=== PATIENT | male | born 1950 | race Caucasian/White ===

== ENCOUNTER 2017-01-30 14:15 | Emergency (ER) | payer BC, OTHER ==
[2017-01-30 14:20] VITALS: BMI 33.0
--- NOTE | 2017-01-30 14:43 | PDOC ---
History of Present Illness - General Chief Complaint: Revisit, Lab Variance Stated Complaint: PCP SENT Time Seen by Provider: 01/30/17 14:43 - History of Present Illness Initial Comments: 66 year old male with PMH of HTN, CHF (S/P CABG x3 20 years ago and defib placement 10 years ago), afib (on Coumadin), HDL, and BPH presenting for an INR recheck after a supra-therapeutic (8) level was measured yesterday with his primary care Dr. Greene. His doctor instructed him to come into the ED to get a quicker check because the lab in his office had a three day turn around. He does not have any GI, oropharyngeal, or urinary bleeding and has not had any new episodes of fatigue. He does however have a bruise on his forearm that is new. He has been on coumadin for years and has not had supratherapatic reading sin the past. His diet has not changed much but of note he has has started Fenofibrate recently. Denies any other symptoms. 01/30/17 15:05 01/30/17 15:32 Past History - Past Medical History Allergies/Adverse Reactions: Allergies Allergy/AdvReac Type Severity Reaction Status Date / Time No Known Allergies Allergy Verified 01/30/17 14:20 Home Medications: Ambulatory Orders Amiodarone HCl 200 mg PO DAILY 01/30/17 Amlodipine Besylate 5 mg PO DAILY 01/30/17 Aspirin [ASA -] 325 mg PO DAILY 01/30/17 Clonidine HCl 0.2 mg PO DAILY 01/30/17 Fenofibrate Nanocrystallized [Fenofibrate] 48 mg PO DAILY 01/30/17 Furosemide [Lasix] 40 mg PO DAILY 01/30/17 Metoprolol Tartrate 50 mg PO DAILY 01/30/17 Rosuvastatin Calcium 10 mg PO DAILY 01/30/17 Tamsulosin HCl 0.4 mg PO DAILY 01/30/17 Warfarin Na [Coumadin] 2.5 mg PO DAILY 01/30/17 Cardiac Disorders: Yes (A FIB) - Surgical History Appendectomy: Yes Cardiac Surgery: Yes (DEFIBRILLATOR , BYPASS, STENTS) - Psycho/Social/Smoking Cessation Hx Anxiety: No Suicidal Ideation: No Smoking History: Former smoker Have you smoked in the past 12 months: No If you are a former smoker, when did you quit?: 25 Information on smoking cessation initiated: No Hx Alcohol Use: Yes (SOCIAL) Drug/Substance Use Hx: No Substance Use Type: None Review of Systems - Review of Systems Constitutional: No: Chills, Diaphoresis, Fever HEENTM: No: Blurred Vision, Recent change in vision Respiratory: No: Cough, Shortness of Breath Cardiac (ROS): No: Lightheadedness, Palpitations ABD/GI: No: Constipated, Nausea, Vomiting Musculoskeletal: No: Back Pain, Gout Integumentary: Yes: Bruising, Change in Color Neurological: No: Numbness, Paresthesia *Physical Exam - Vital Signs Last Vital Signs Temp Pulse Resp BP Pulse Ox 98.4 F 88 20 155/92 98 01/30/17 14:01/30/17 14:01/30/17 14:01/30/17 14:01/30/17 14:17 - Physical Exam General Appearance: Yes: Appropriately Dressed. No: Apparent Distress HEENT: positive: EOMI, FABIOLA, Normal Voice Respiratory/Chest: positive: Lungs Clear, Normal Breath Sounds. negative: Chest Tender, Respiratory Distress, Accessory Muscle Use Cardiovascular: positive: Regular Rhythm, Regular Rate, S1, S2. negative: Edema , JVD, Murmur Gastrointestinal/Abdominal: positive: Normal Bowel Sounds, Flat, Soft. negative : Tender Musculoskeletal: positive: Normal Inspection Extremity: positive: Normal Capillary Refill, Normal Inspection, Normal Range of Motion. negative: Tender Integumentary: positive: Dry, Warm, Bruising. negative: Normal Color, Erythema (Over his left anterior forearm.) ED Treatment Course - LABORATORY CBC & Chemistry Diagram: 01/30/17 15:42 01/30/17 15:42 Medical Decision Making - Medical Decision Making 66 year old presenting for recheck of PT/ INR after supra-therapeutic value noted in her PCP appointment. Will recheck PT/ INR only. No concern for significant acute bleed. 01/30/17 15:32 INR still 8 so gave 2.5 of vitamin K and will DC. Spoke to Dr. Greene and he is OK with DC'ng patient. 01/30/17 17:41 *DC/Admit/Observation/Transfer Diagnosis at time of Disposition: Elevated international normalized ratio (INR) - Discharge Dispostion Disposition: HOME Condition at time of disposition: Improved Admit: No - Referrals Referrals: Mynor Villalobos MD [Primary Care Provider] - - Patient Instructions Additional Instructions: You were seen for elevated INR. We checked it again and it is still high meaning your Warfarin level is too high. Please follow up with Dr. Greene tomorrow. If you notice blood in your spit, stool, or vomit then please return.
[2017-01-30 15:37] LABS: PROTHROMBIN TIME (PATIENT) 95.2 SEC (9.98-11.88)
[2017-01-30 16:02] LABS: INR 8.29 (0.82-1.09)
[2017-01-30 16:22] LABS: BASOPHIL 1.1 % (0-2.0); EOSINOPHIL 3.5 % (0-4.5); MCH 32.4 pg (25.7-33.7); MCHC 33.7 g/dl (32.0-35.9); MEAN CELL VOLUME 96.1 fl (80-96); NEUTROPHILS 66.3 % (42.8-82.8); PLATELET COUNT 255 K/MM3 (134-434); RDW 14.3 % (11.9-15.9); WHITE BLOOD COUNT 9.1 K/mm3 (4.0-10.0)
[2017-01-30] MEDS ORDERED: PHYTONADIONE 5 MG TABLET PO ONE (16:35)
--- NOTE | 2017-01-30 16:50 | PDOC ---
Attending Attestation - Resident Resident Name: Erwin Gutierrez - ED Attending Attestation I have performed the following: I have examined & evaluated the patient, The case was reviewed & discussed with the resident, I agree w/resident's findings & plan, Exceptions are as noted - HPI HPI: 01/30/17 16:47 66 M with afib on coumadin, presenting to ER with supratherapeutic INR. Pt reports taking his usual dose of coumadin, denies any additional doses. Denies any bleeding or bruising, no dark black or red stools. INR reportedly 8 at coumadin clinic. - Physicial Exam PE: 01/30/17 16:49 "GENERAL: Awake, alert, and fully oriented, in no acute distress HEAD: No signs of trauma EYES: PERRLA, EOMI, sclera anicteric, conjunctiva clear ENT: Auricles normal inspection, hearing grossly normal, nares patent, oropharynx clear without exudates. Moist mucosa NECK: Normal ROM, supple, no lymphadenopathy, JVD, or masses LUNGS: Breath sounds equal, clear to auscultation bilaterally. No wheezes, and no crackles HEART: Regular rate and rhythm, normal S1 and S2, no murmurs, rubs or gallops ABDOMEN: Soft, nontender, normoactive bowel sounds. No guarding, no rebound. No masses EXTREMITIES: Normal range of motion, no edema. No clubbing or cyanosis. No cords, erythema, or tenderness NEUROLOGICAL: Cranial nerves II through XII grossly intact. Normal speech, normal gait SKIN: Warm, Dry, normal turgor, no rashes or lesions noted. " - Medical Decision Making 01/30/17 16:49 66 M with supratherapeutic INR. No signs of bleeding or bruising on exam. INR 8 in ER today. - Vitamin K PO - F/u with PMD for INR check.
[2017-01-30 16:59] LABS: ALBUMIN 3.7 g/dl (3.4-5.0); ANION GAP 12 (8-16); CALCIUM 9.2 mg/dL (8.5-10.1); CO2 25 mmol/L (21-32); CREATININE 2.7 mg/dL (0.7-1.3); GLUCOSE,RANDOM 94 mg/dL (74-106); SGOT/AST 21 U/L (15-37); SGPT/ALT 28 U/L (12-78)
[2017-01-30 17:01] LABS: ALK PHOS 54 U/L (45-117); BILIRUBIN,TOTAL 0.6 mg/dL (0.2-1.0); TOT PROT 7.5 g/dl (6.4-8.2)
[2017-01-30 18:03] VITALS: BP 116/68; PULSE 80; TEMP 97.8
== END 2017-01-30 17:50 | disposition home or self-care (01) ==
LOC: JER 14:15
DX: D68.8 Other specified coagulation defects (principal); I48.91 Unspecified atrial fibrillation; Z79.01 Long term (current) use of anticoagulants; I25.10 Atherosclerotic heart disease of native coronary artery without angina pectoris; I11.0 Hypertensive heart disease with heart failure; Z95.1 Presence of aortocoronary bypass graft; Z95.5 Presence of coronary angioplasty implant and graft; Z95.810 Presence of automatic (implantable) cardiac defibrillator; E78.00 Pure hypercholesterolemia, unspecified; N40.0 Benign prostatic hyperplasia without lower urinary tract symptoms
CPT/HCPCS: 36415; 80053; 85025; 85610; 85730; 99282-25

== ENCOUNTER 2020-05-03 05:52 | Inpatient (IN) | payer OTHER ==
[2020-04-29 11:42] VITALS: BMI 32.0
[~2020-05-03 05:52] MED LIST: GELATIN, ABSORBABLE 100 EACH SPONGE TP ONE; THROMBIN (BOVINE) 5,000 UNIT VIAL TP ONE
[2020-05-03] MEDS ORDERED: BUPIVACAINE LIPOSOME/PF (EXPAREL) 266 MG/20 ML VIAL ONE (06:49)
[2020-05-03] MEDS ORDERED: MIDAZOLAM HCL 2 MG/2 ML SINGLE DOSE VIAL ONE (06:49)
[2020-05-03] MEDS ORDERED: CEFAZOLIN 2 GM in DEXTROSE 5%-WATER - 50 ML IVPB ONE (06:51)
[2020-05-03] MEDS ORDERED: CELECOXIB 200 MG CAPSULE PO ONE (06:51)
[2020-05-03] MEDS ORDERED: TRANEXAMIC ACID 1000 MG/10 ML VIAL IVPUSH ONE (06:51)
[2020-05-03] MEDS ORDERED: ceFAZolin SODIUM 1 GM VIAL ONE (07:06)
[2020-05-03] MEDS ORDERED: VANCOMYCIN 1,000 MG VIAL (RESTRICTED TO ID ONLY) ONE (07:06)
[2020-05-03] MEDS ORDERED: MAG HYDROX/AL HYDROX/SIMETH 30 ML UNIT-DOSE CUP PO PRN (08:00)
[2020-05-03] MEDS ORDERED: LACTATED RINGERS SOLUTION 1,000 ML IV SCH ×2 (08:00→12:00)
[2020-05-03] MEDS ORDERED: ONDANSETRON 4 MG/2 ML VIAL IVPUSH PRN ×2 (08:00→11:59)
[2020-05-03 08:04] LABS: INR 1.76 (0.82-1.09)
[2020-05-03] MEDS ORDERED: THROMBIN (RECOMBINANT) 5,000 UNIT VIAL TP ONE (08:05)
[2020-05-03] MEDS ORDERED: PHENYLEPHRINE HCL 10 MG/1 ML SINGLE DOSE VIAL ONE (08:49)
[2020-05-03] MEDS ORDERED: DEXAMETHASONE SOD PHOSPHATE 4 MG/1 ML VIAL ONE (08:50)
[2020-05-03] MEDS ORDERED: ONDANSETRON 4 MG/2 ML VIAL ONE (08:50)
[2020-05-03] MEDS ORDERED: PROPOFOL 20 ML ONE ×3 (08:57)
[2020-05-03] MEDS ORDERED: ROCURONIUM BROMIDE 50 MG/5 ML VIAL ONE (09:01)
[2020-05-03] MEDS ORDERED: FAMOTIDINE 20 MG TABLET PO SCH (10:00)
[2020-05-03] MEDS ORDERED: PANTOPRAZOLE 40 MG TABLET PO SCH (10:00)
[2020-05-03] MEDS ORDERED: PATIENT'S OWN MEDICATION (NON-FORMULARY) (Fenofibrate Nanocrystallized [Fenofibrate] 48 MG PO SCH (10:00)
[2020-05-03] MEDS ORDERED: fentaNYL CITRATE 250 MCG/5 ML VIAL ONE (10:03)
[2020-05-03] MEDS ORDERED: THROMBIN (BOVINE) 5,000 UNIT VIAL TP ONE (11:09)
[2020-05-03] MEDS ORDERED: GELATIN, ABSORBABLE 100 EACH SPONGE TP ONE (11:09)
[2020-05-03] MEDS ORDERED: BUPIVICAINE 0.25%/MORPH PF/KETOROLAC - 51ML DISP.SYRINGE IA ONE (11:22)
[2020-05-03] MEDS ORDERED: oxyCODONE HCL 5 MG TABLET PO PRN ×2 (11:59)
[2020-05-03] MEDS ORDERED: ACETAMINOPHEN 1000 MG/100 ML VIAL (NON FORMULARY) IVPB ONE (11:59)
[2020-05-03] MEDS ORDERED: traMADol HCL 50 MG TABLET PO PRN (11:59)
[2020-05-03] MEDS ORDERED: HYDROmorphone HCL CARPU-JECT 1 MG/1 ML DISP.SYRIN IVPUSH PRN (11:59)
[2020-05-03] MEDS ORDERED: ACETAMINOPHEN 325 MG TABLET (FP) PO SCH (12:00)
[2020-05-03] MEDS ORDERED: ACETAMINOPHEN INJECTION 100 ML IVPB ONE (12:24)
[2020-05-03 13:26] VITALS: BP 150/66; PULSE 62; TEMP 97.8
[2020-05-03] MEDS ORDERED: cloNIDine HCL 0.1 MG TABLET PO SCH (14:00)
[2020-05-03] MEDS ORDERED: CEFAZOLIN 2 GM/D5W 2 GM/50 ML ML IVPB SCH ×2 (16:00→18:00)
[2020-05-03] MEDS ORDERED: oxyCODONE HCL 10 MG SUSTAINED ACTING TABLET PO SCH (22:00)
[2020-05-03] MEDS ORDERED: ROSUVASTATIN CA 10 MG TABLET (FP) PO SCH (22:00)
[2020-05-03] MEDS ORDERED: METOPROLOL TARTRATE 50 MG TABLET (FP) PO SCH (22:00)
[2020-05-03] MEDS ORDERED: SENNOSIDES/DOCUSATE COMBO (SENNA PLUS) TABLET (UD) PO SCH (22:00)
[2020-05-04] MEDS ORDERED: GLIMEPIRIDE 2 MG TABLET PO SCH (07:00)
[2020-05-04] MEDS ORDERED: ASPIRIN 325 MG TABLET PO SCH (08:00)
[2020-05-04] MEDS ORDERED: TAMSULOSIN HCL 0.4 MG CAP PO SCH (08:30)
[2020-05-04] MEDS ORDERED: FENOFIBRIC ACID 45 MG CAP PO SCH (10:00)
[2020-05-04] MEDS ORDERED: amLODIPine BESYLATE 5 MG TABLET (FP) PO SCH (10:00)
[2020-05-04] MEDS ORDERED: MULTIVITAMINS (DAILY MVI) TABLET (FP) PO SCH (10:00)
[2020-05-04] MEDS ORDERED: AMIODARONE HCL 200 MG TABLET PO SCH (10:00)
[2020-05-04] MEDS ORDERED: WARFARIN NA 1 MG TABLET PO SCH (18:00)
== END 2020-05-03 16:08 | disposition home or self-care (01) | DRG 470 ==
LOC: FM/S 05:52
PROVIDERS: ADMIT Orthopaedic Surgery; ATTEND Orthopaedic Surgery
PROC: 8E0Y0CZ Robotic Assisted Procedure of Lower Extremity, Open Approach (ICD-10-PCS; 2020-05-03)
PROC: 0SRC0J9 Replacement of Right Knee Joint with Synthetic Substitute, Cemented, Open Approach (ICD-10-PCS; principal; 2020-05-03 10:31)
DX: M17.11 Unilateral primary osteoarthritis, right knee (principal)
CPT/HCPCS: 36415; 73560-TC-RT-FY; 82962; 85610; 94760; 97010-GP; 97116-GP; 97162-GP; J0131; J0735

== ENCOUNTER 2021-01-03 05:58 | Day surgery (SDC) | payer OTHER ==
[2020-12-29 12:33] VITALS: BMI 29.8
[2021-01-03] MEDS ORDERED: TRANEXAMIC ACID 1000 MG/10 ML VIAL IVPUSH ONE (06:25)
[2021-01-03] MEDS ORDERED: CEFAZOLIN 2 GM in DEXTROSE 5%-WATER - 50 ML IVPB ONE (06:25)
[2021-01-03] MEDS ORDERED: CELECOXIB 200 MG CAPSULE PO ONE ×2 (06:25→07:15)
[2021-01-03] MEDS ORDERED: BUPIVICAINE 0.25%/MORPH PF/KETOROLAC - 51ML DISP.SYRINGE IA ONE ×3 (06:25→09:43)
[2021-01-03] MEDS ORDERED: MIDAZOLAM HCL 2 MG/2 ML SINGLE DOSE VIAL ONE (07:13)
[2021-01-03] MEDS ORDERED: ceFAZolin SODIUM 1 GM VIAL ONE ×2 (07:20→08:41)
[2021-01-03] MEDS ORDERED: THROMBIN (BOVINE) 5,000 UNIT VIAL TP ONE (07:20)
[2021-01-03] MEDS ORDERED: ROPIVACAINE HCL 0.5% 30ML VIAL ONE (08:09)
[2021-01-03 08:17] LABS: INR 1.12 (0.82-1.09); PROTHROMBIN TIME (PATIENT) 12.4 SEC (10.2-13.0)
[2021-01-03] MEDS ORDERED: BUPIVACAINE HCL 50 ML ONE (08:20)
[2021-01-03] MEDS ORDERED: PROPOFOL 20 ML ONE (08:21)
[2021-01-03] MEDS ORDERED: SUCCINYLCHOLINE CHLORIDE 200 MG/10 ML SYRINGE ONE (08:21)
[2021-01-03] MEDS ORDERED: TRANEXAMIC ACID 1000 MG/10 ML VIAL ONE (09:55)
[2021-01-03] MEDS ORDERED: ceFAZolin 2 GRAM PREMIX BAG IVPB ONE ×2 (10:00→12:35)
[2021-01-03] MEDS ORDERED: ONDANSETRON 4 MG/2 ML VIAL IVPUSH PRN (10:29)
[2021-01-03] MEDS ORDERED: LACTATED RINGERS SOLUTION 1,000 ML IV SCH (10:30)
[2021-01-03] MEDS ORDERED: oxyCODONE HCL 5 MG TABLET PO PRN ×2 (10:31)
[2021-01-03 12:15] VITALS: BP 155/69; PULSE 59; TEMP 97.7
== END 2021-01-03 15:57 | disposition home health service (06) ==
LOC: FASUSAT 05:58 → FM/S 11:43 → FASUSAT 15:57
PROVIDERS: ATTEND Orthopaedic Surgery
PROC: 8E0YXBZ Computer Assisted Procedure of Lower Extremity (ICD-10-PCS; 2021-01-03)
PROC: 8E0Y0CZ Robotic Assisted Procedure of Lower Extremity, Open Approach (ICD-10-PCS; 2021-01-03)
PROC: 0SRD0L9 Replacement of Left Knee Joint with Medial Unicondylar Synthetic Substitute, Cemented, Open Approach (ICD-10-PCS; principal; 2021-01-03 08:53)
DX: M17.12 Unilateral primary osteoarthritis, left knee (principal)
CPT/HCPCS: 20985; 27446; C1776; S2900; 36415; 73560-TC-LT-FY; 82962; 85610; 94760; 97010-GP; 97116-GP; 97162-GP

== ENCOUNTER 2021-07-14 12:00 | Emergency (ER) | payer MEDICARE, OTHER ==
[2021-07-14 12:05] VITALS: BP 143/77; PULSE 77; TEMP 97.8; BMI 31.1
[2021-07-14] MEDS ORDERED: ACETAMINOPHEN 325 MG TABLET (FP) PO ONE (12:15)
[2021-07-14] MEDS ORDERED: DIPHTH,PERTUSS(ACELL),TET 0.5 ML DISP.SYRIN IM ONE ×2 (12:15→12:23)
[2021-07-14] MEDS ORDERED: ACETAMINOPHEN 325 MG TABLET (FP) ONE (12:23)
[2021-07-14] MEDS ORDERED: LIDOCAINE HCL 1%, 10 MG/ML (50 mL VIAL) INF ONE (13:34)
== END 2021-07-14 14:40 | disposition home or self-care (01) ==
LOC: FER 12:00
PROC: 3E0234Z Introduction of Serum, Toxoid and Vaccine into Muscle, Percutaneous Approach (ICD-10-PCS; principal; 2021-07-14)
DX: S42.292A Other displaced fracture of upper end of left humerus, initial encounter for closed fracture (principal); S62.619A Displaced fracture of proximal phalanx of unspecified finger, initial encounter for closed fracture; W19.XXXA Unspecified fall, initial encounter; Y92.9 Unspecified place or not applicable
CPT/HCPCS: 70450-TC; 72125-TC; 73030-TC-LT-FY; 73060-TC-LT-FY; 73070-TC-LT-FY; 73130-TC-RT-FY; 73200-TC-RT; 90471; 90715; 99284-25

== ENCOUNTER 2022-02-15 05:56 | Day surgery (SDC) | payer MEDICARE, OTHER ==
[2022-02-12 17:22] VITALS: BMI 31.5
[2022-02-15] MEDS ORDERED: ceFAZolin SODIUM 1 GM VIAL ONE (07:24)
[2022-02-15] MEDS ORDERED: LIDOCAINE HCL/PF 2% SDV 5ML VIAL ONE (07:24)
[2022-02-15] MEDS ORDERED: ONDANSETRON 4 MG/2 ML VIAL ONE (07:24)
[2022-02-15] MEDS ORDERED: DEXAMETHASONE SOD PHOSPHATE 4 MG/1 ML VIAL ONE (07:24)
[2022-02-15] MEDS ORDERED: PROPOFOL 40 ML ONE (07:24)
[2022-02-15 08:02] LABS: INR 1.28 (0.83-1.09); PROTHROMBIN TIME (PATIENT) 14.8 SEC (9.7-13.0)
[2022-02-15] MEDS ORDERED: MIDAZOLAM HCL 2 MG/2 ML SINGLE DOSE VIAL ONE (08:04)
[2022-02-15] MEDS ORDERED: ROPIVACAINE HCL/PF 100 MG/20 ML VIAL ONE (08:05)
[2022-02-15] MEDS ORDERED: ROCURONIUM BROMIDE 50 MG/5 ML SYRINGE ONE (08:46)
[2022-02-15] MEDS ORDERED: NEOSTIGMINE METHYLSULFATE 0.5 MG/1 ML - 10 ML MDV ONE (09:40)
[2022-02-15] MEDS ORDERED: GLYCOPYRROLATE 0.2 MG/1 ML VIAL ONE (09:41)
[2022-02-15] MEDS ORDERED: ONDANSETRON 4 MG/2 ML VIAL IVPUSH PRN (10:11)
[2022-02-15] MEDS ORDERED: oxyCODONE HCL 5 MG TABLET PO PRN ×2 (10:11)
[2022-02-15] MEDS ORDERED: ACETAMINOPHEN 500 MG TABLET (FP) PO PRN (10:11)
[2022-02-15 10:35] VITALS: RESP 18
[2022-02-15 11:07] VITALS: TEMP 96.5
[2022-02-15 11:55] VITALS: BP 138/66; PULSE 64
== END 2022-02-15 11:58 | disposition home or self-care (01) ==
LOC: FASU 05:56
PROVIDERS: ATTEND Orthopaedic Surgery Sports Medicine
PROC: 0LB24ZZ Excision of Left Shoulder Tendon, Percutaneous Endoscopic Approach (ICD-10-PCS; principal; 2022-02-15 09:10)
PROC: 0RBK4ZZ Excision of Left Shoulder Joint, Percutaneous Endoscopic Approach (ICD-10-PCS; 2022-02-15 09:10)
DX: S42.92XP Fracture of left shoulder girdle, part unspecified, subsequent encounter for fracture with malunion (principal); X58.XXXD Exposure to other specified factors, subsequent encounter; M24.012 Loose body in left shoulder; M75.112 Incomplete rotator cuff tear or rupture of left shoulder, not specified as traumatic; M75.42 Impingement syndrome of left shoulder; M24.112 Other articular cartilage disorders, left shoulder
CPT/HCPCS: 36415; 82962; 85610; 94760